=== PATIENT | female | born 1985 | race Caucasian/White ===

== ENCOUNTER 2016-11-17 16:06 | Emergency (ER) | payer SELFPAY ==
[2016-11-17 16:25] VITALS: TEMP 98.5; BMI 27.1
--- NOTE | 2016-11-17 17:08 | EDPRACDOC ---
- General Information Chief Complaint: Facial Pain Stated Complaint: SINUS INFECTION PRESSURE LT EYE,LOSS OF VISION Time Seen by Provider: 11/17/16 16:56 Information Source: Patient Mode Of Arrival: Car Home Medications: Home Medications Lamotrigine [Lamictal] 400 mg PO DAILY 05/29/15 Albuterol Sulfate [Proair Hfa] 2 puff INH Q4-6H PRN 02/03/16 Carbamazepine [Carbamazepine ER] 200 mg PO Q12H 02/03/16 Nitroglycerin [Nitrostat] 0.4 mg SL Q5MX3 PRN 02/03/16 Hydrocodone Bit/Acetaminophen [Hydrocodon-Acetaminophen 5-325] 1 - 2 tab PO Q4H PRN #30 tab 04/05/16 Ibuprofen Tablet [Motrin] 800 mg PO TID #30 tab 04/05/16 Promethazine HCl [Phenergan] 12.5 mg PO Q6 PRN #30 tablet 04/05/16 Amox Tr/Potassium Clavulanate [Augmentin Tablet (875mg/125mg)] 1 tab PO BID #20 tablet 11/17/16 Ketorolac Tromethamine 10 mg PO Q8H PRN #15 tab 11/17/16 Pseudoephedrine HCl [Pseudoephedrine ER] 120 mg PO BID #14 tablet.er 11/17/16 Allergies/Adverse Reactions: Allergies Allergy/AdvReac Type Severity Reaction Status Date / Time oxycodone HCl [From Percocet] Allergy Severe Hives* Verified 11/17/16 16:25 levofloxacin [From Levaquin] Allergy Intermediate Rash-Locali Verified 11/17/16 16:25 zed - History of Present Illness Onset: yesterday HPI: Pt c/o congestion, cough x 3 weeks. Yesterday began having L maxillary sinus pain, earache, blurred vision, retro-orbital pain. Denies fever, sore throat, cp , sob, n/v, abd pain, changes in bowel or bladder, rash. Location: Reports: Retroorbital Pain Quality: Reports: Moderate, Throbbing Modifying Factors: worse with: Medication, Exposure to light, Cold therapy, Immobilization, Movement, Rest Prior work up: Denies: NO, O, CT, LP, MRI, Neurologist Associated Signs and Symptoms: Reports: Nasal Congestion, Vision Changes ED Past Medical History - History Reviewed Yes Nurses notes reviewed and agree except as marked - Patient Medical History Respiratory History: Reports: Pneumonia (NOV 2015) Psychological History: Reports: Anxiety, Bipolar Disorder Systemic History: Reports: Anemia (SLIGHT IN HX) Surgical History: Reports: Tonsillectomy/Adnoidectomy - Family Medical History Reports: Hypertension (Father, Maternal grandfather), Diabetes (Maternal grandfather), Cancer (Maternal grandmother-breast,ovarian,cervical), Stroke ( maternal grandmother), Cardiac Disorders (Father-mi @34, at 46, Maternal grandfather) - Social Medical History Smoking Status: Light tobacco smoker (less than 5/day) ETOH: None Substance Abuse: None EDM Review of Systems - Review of Systems Constitutional: No Symptoms Reported. negative: Fever, Chills, Weakness, Fatigue, Loss of Appetite Eyes: Blurred Vision Ears: Pain. negative: No Symptoms Reported, Drainage, Ear Pulling, Hearing Loss Throat: No Symptoms Reported. negative: Pain, Swelling Nose: Congestion Mouth: No Symptoms Reported. negative: Pain, Drooling Respiratory: Cough. negative: No Symptoms Reported, Barky Cough, Brassy Cough, Hemoptysis, Shortness of Breath, Wheezing Cardiovascular: No Symptoms Reported. negative: Chest Pain, Palpitations, Syncope, Edema, Orthopnea, PND, Skin Mottling, Cyanosis Gastrointestinal: No Symptoms Reported. negative: Pain, Constipation, Nausea, Vomiting, Diarrhea, Melena, Formula Intolerance Genitourinary: No Symptoms Reported. negative: Dysuria, Hematuria, Frequency, Discharge, Bleeding, Testicular Pain, Neurological: Headache Musculoskeletal: No Symptoms Reported. negative: Neck, Chestwall, Ribs, Back, Shoulder, Arm, Elbow, Forearm, Wrist, Hand, Pelvis, Hip, Femur, Knee, Leg, Ankle , Foot Integumentary: No Symptoms Reported. negative: Itching, Rash, Bruising, Wound Allergic/Immunologic: No Symptoms Reported. negative: Hives, Itching Hematologic: No Symptoms Reported. negative: Lymphadenopathy, Easy Bruising, Easy Bleeding Psychiatric: No Symptoms Reported. negative: Anxiety, Depression, Hallucinations, Insomnia, Suicidal - Physical Exam Constitutional: No apparent distress, Alert Oriented to: Time, Person, Place Last recorded Vital Signs: Last Vital Signs Temp 98.5 F 11/17/16 16:20 Pulse 87 11/17/16 16:20 Resp 18 11/17/16 16:20 BP 152/65 11/17/16 16:20 Pulse Ox 96 11/17/16 16:20 Oxygen Pulse Oxygen Saturation 96 O2 Device Oxygen Flow Rate Fraction of Inspired Oxygen ( FIO2) - HEENT Head: Normal ( normocephalic) Eye Exam: Normal (PERRL, EOMI, Sclera white) Oropharynx: Normal (Pharynx:Moist without exudate,Gums-no swelling) Tympanic Membrane: Normal ENT EAC: Normal TMJ: Normal Nose: Congestion Neck: Normal (FROM, trachea at midline) HEENT Comment: L maxillary tenderness - Respiratory/Cardiovascular Respiratory: Normal - CTA (BBS clear to auscultation without adventitious sounds ) Cardiovascular: Normal (RRR without murmur, gallop or rub) - Integumentary Skin: Normal, Warm, Dry Lymphatics: Normal (no adenopathy) - Neurologic Memory Impaired: Normal Motor Function: Normal (Normal tone, Pulses 2+ No cyanosis or edema, FROM) Mood Description: Normal Perception: Normal - Differential Diagnosis Migraine, Sinusitis, Acute Benign Cephalgia - Diagnostic Imaging Head Image interpreted by: Radiologist IMPRESSION: No evidence of intracranial abnormality. Left ethmoid sinus disease. Decision Time to Discharge: 18:25 - Departure Disposition: Home Condition: Good Final Diagnosis: Sinusitis Qualifiers: Sinusitis location: ethmoidal Chronicity: acute Recurrence: not specified as recurrent Qualified Code(s): J01.20 - Acute ethmoidal sinusitis, unspecified Instructions: Sinusitis (ED) Education/Counseling Given To: Patient Education/Counseling Given Regarding: Diagnosis, Treatment, Follow Up Referrals: None,No Provider [Primary Care Provider] - One Week Adam Munson MD [Staff Physician] - One Week Prescriptions: New Amox Tr/Potassium Clavulanate [Augmentin Tablet (875mg/125mg)] 1 tab PO BID # 20 tablet Ketorolac Tromethamine 10 mg PO Q8H PRN #15 tab PRN Reason: Pain Pseudoephedrine HCl [Pseudoephedrine ER] 120 mg PO BID #14 tablet.er No Action Lamotrigine [Lamictal] 400 mg PO DAILY Albuterol Sulfate [Proair Hfa] 2 puff INH Q4-6H PRN PRN Reason: Shortness Of Breath Carbamazepine [Carbamazepine ER] 200 mg PO Q12H Nitroglycerin [Nitrostat] 0.4 mg SL Q5MX3 PRN PRN Reason: Chest Pain Or Discomfort Hydrocodone Bit/Acetaminophen [Hydrocodon-Acetaminophen 5-325] 1 - 2 tab PO Q4H PRN #30 tab PRN Reason: Pain Ibuprofen Tablet [Motrin] 800 mg PO TID #30 tab Promethazine HCl [Phenergan] 12.5 mg PO Q6 PRN #30 tablet PRN Reason: Nausea Additional Instructions: Return for worse or different symptoms.
[2016-11-17 17:27] LABS: LEUKOCYTES/URINE NEG (NEGATIVE); NITRITE/URINE NEG (NEGATIVE); URINE OCCULT BLOOD NEG (NEG/TRACE); WBC/URINE 0-2 (0-5)
[2016-11-17] MEDS ORDERED: KETOROLAC TROMETHAMINE 10 MG TAB PO ONE (17:30)
--- NOTE | 2016-11-17 18:16 | DIRPT ---
CLINICAL DATA: Left-sided headache dizziness for 1 day. Blurred vision. Sinusitis for 3 weeks. EXAM: CT HEAD WITHOUT CONTRAST TECHNIQUE: Contiguous axial images were obtained from the base of the skull through the vertex without intravenous contrast. COMPARISON: 04/13/2010 FINDINGS: No evidence of intracranial hemorrhage, brain edema, or other signs of acute infarction. No evidence of intracranial mass lesion or mass effect. No abnormal extraaxial fluid collections identified. Ventricles are normal in size. No skull abnormality identified. Mucosal thickening is seen involving the left ethmoid sinus. IMPRESSION: No evidence of intracranial abnormality. Left ethmoid sinus disease. Electronically Signed By: Demetrius Michael M.D. On: 11/17/2016 18:13
[2016-11-17 18:45] VITALS: BP 143/70; PULSE 74
== END 2016-11-17 18:41 | disposition home or self-care (01) ==
LOC: EDMC 16:06
DX: J01.20 Acute ethmoidal sinusitis, unspecified (principal)
CPT/HCPCS: 70450; 81001; 81025; 99283; J3490